=== PATIENT | female | born 1935 | race Hispanic/Latino ===

== ENCOUNTER 2019-04-23 06:59 | Day surgery (SDC) | payer MEDICARE ==
[~2019-04-23] VITALS: Ht 157.5 cm; Wt 81.6 kg
[~2019-04-23 06:59] MED LIST: SODIUM CHLORIDE 0.9% 1000ML 1,000 ML IV ONE
[2019-04-23 08:00] LABS: BASOPHILS % (AUTO) 0.9 % (0.0-5.0); EOSINOPHILS % (AUTO) 2.9 % (0.0-8.0); HEMATOCRIT 40.4 % (36-48); MEAN CORPUSCULAR HEMOGLOBIN 32.4 pg (27.0-33.0); MEAN CORPUSCULAR HGB CONC 33.7 g/dL (32.0-36.0); MEAN CORPUSCULAR VOLUME 95.9 fL (79-99); MONOCYTES % (AUTO) 7.6 % (3.0-13.0); NEUTROPHILS % (AUTO) 69.6 % (40.0-77.0); PLATELET COUNT (AUTO) 173 K/uL (130-400); RED BLOOD CELL COUNT(AUTO) 4.22 MIL/uL (4.00-5.50); RED CELL DISTRIBUTION WIDTH 13.6 % (11.0-15.5); WHITE BLOOD COUNT (AUTO) 6.7 K/uL (4.8-10.8)
[2019-04-23 08:09] LABS: INR 0.94 (0.85-1.15); PROTHROMBIN TIME 9.9 SEC (9.6-11.6)
[2019-04-23 08:30] VITALS: BP 157/69
[2019-04-23] MEDS ORDERED: LOSA25TA41 PO (08:45)
[2019-04-23] MEDS ORDERED: HYDR200T4 PO (08:45)
[2019-04-23] MEDS ORDERED: LEVO112T7 PO (08:45)
[2019-04-23] MEDS ORDERED: MIRA25TA PO (08:45)
[2019-04-23] MEDS ORDERED: PROPOFOL 10 MG/ML 20ML VIAL IV ONE ×3 (09:34→10:02)
[2019-04-23 10:09] VITALS: BP 133/58
[2019-04-23 10:14] VITALS: BP 126/59
[2019-04-23 10:19] VITALS: BP 119/49
[2019-04-23 10:24] VITALS: BP 119/48
== END 2019-04-23 10:35 | disposition home or self-care (01) ==
LOC: DAH 06:59 → ENDO 06:59
PROVIDERS: ATTEND Internal Medicine
DX: K31.7 Polyp of stomach and duodenum (principal); K44.9 Diaphragmatic hernia without obstruction or gangrene; E03.9 Hypothyroidism, unspecified; Z88.1 Allergy status to other antibiotic agents; Z88.8 Allergy status to other drugs, medicaments and biological substances; Z79.899 Other long term (current) drug therapy; Z90.710 Acquired absence of both cervix and uterus; Z90.49 Acquired absence of other specified parts of digestive tract; Z98.890 Other specified postprocedural states; Z72.89 Other problems related to lifestyle; Z82.49 Family history of ischemic heart disease and other diseases of the circulatory system; Z82.3 Family history of stroke
CPT/HCPCS: 36415; 43238; 85025; 85610; 88108; 88305; A4215; A4606; J2704 ×2; J7030